=== PATIENT | male | born 2005 | race Two or more races ===

== ENCOUNTER 2023-03-24 20:56 | Inpatient (IN) | payer OTHER, BC ==
[2023-03-24] MEDS ORDERED: Metoclopramide 10 MG/2 ML SDV IVPUSH ONE (21:14)
[2023-03-24] MEDS ORDERED: Sodium Chloride 0.9% 1,000 ML IV SCH (21:15)
[2023-03-24] MEDS ORDERED: LORazepam 2 MG/ML SDV IVPUSH ONE (21:15)
[2023-03-24] MEDS ORDERED: HYDROmorphone 1 MG/ML Syringe IVPUSH ONE (21:15)
[2023-03-24 21:18] LABS: BASOPHILS ABSOLUTE AUTO 0.1 K/mm3 (0.0-0.3); BASOPHILS PERCENT AUTO 1.1 % (0.0-1.0); EOSINOPHILS ABSOLUTE AUTO 0.2 K/mm3 (0.0-0.7); HEMOGLOBIN 16.3 gm/dl (14.0-18.0); IMMATURE GRAN ABSOLUTE AUTO 0.08 K/mm3 (0.00-0.05); IMMATURE GRAN PERCENT AUTO 0.9 % (0.0-0.4); LYMPHOCYTES ABSOLUTE AUTO 2.7 K/mm3 (2.0-8.8); LYMPHOCYTES PERCENT AUTO 30.7 % (50.0-65.0); MEAN CORPUSCULAR HEMOGLOBIN 30.5 pg (28.0-32.0); MEAN CORPUSCULAR VOLUME 89.7 fl (83.0-99.0); MEAN PLATELET VOLUME 8.6 fl (9.4-12.4); MONOCYTES ABSOLUTE AUTO 0.7 K/mm3 (0.1-1.4); MONOCYTES PERCENT AUTO 7.4 % (2.0-10.0); NEUTROPHILS ABSOLUTE AUTO 5.2 K/mm3 (1.5-8.5); NEUTROPHILS PERCENT AUTO 57.9 % (35.0-45.0); PLATELET COUNT,PLT 318 K/mm3 (150-400); RED BLOOD CELL COUNT 5.35 M/mm3 (4.52-5.90); WHITE BLOOD CELL COUNT,WBC 8.92 K/mm3 (4.5-13.5)
[2023-03-24 21:26] LABS: PROTHROMBIN TIME 9.9 SECONDS (9.7-12.0)
[2023-03-24 21:27] LABS: PTT,PARTIAL THROMBOPLSTIN TIME 22.6 SECONDS (21.7-31.4)
[2023-03-24 21:29] LABS: ALANINE AMINOTRANSFERASE,ALT 489 U/L (16-63); ALBUMIN 4.1 g/dl (3.4-5.0); ALKALINE PHOSPHATASE 81 U/L (46-116); ASPARTATE AMNIOTRANSFERASE,AST 511 U/L (15-37); BILIRUBIN TOTAL 0.3 mg/dL (0.2-1.0); BLOOD UREA NITROGEN,BUN 9 mg/dL (7-18); BUN/CREATININE RATIO 7.5 (14-18); CALCIUM 8.7 mg/dL (8.5-10.1); CARBON DIOXIDE,CO2 22 mEq/L (21-32); CHLORIDE,CL 107 mEq/L (98-107); CREATININE 1.2 mg/dL (0.7-1.3); ESTIMATED GFR 89 mL/min (>60); ETHANOL BLOOD MEDICAL 0.24 gm% (0.00); GLUCOSE RANDOM 146 mg/dL (70-99); MAGNESIUM 2.4 mg/dL (1.8-2.4); PROTEIN TOTAL,TP 8.1 g/dl (6.4-8.2); SODIUM,NA 144 mEq/L (136-145)
[2023-03-24 21:43] LABS: INR < 0.93
[2023-03-24] MEDS ORDERED: Sodium Chloride 0.9% 10 ML Syringe FLUSH ONE (22:03)
[2023-03-24] MEDS ORDERED: Iopamidol 755 Mg/ML 100 ML Bottle IVPUSH ONE (22:03)
[2023-03-24 22:17] LABS: APPEARANCE,URINE CLEAR (Clear); BILIRUBIN,URINE NEGATIVE (Negative); COLOR,URINE LIGHT YELLOW (Yellow); GLUCOSE,URINE NEGATIVE (Negative); KETONES,URINE NEGATIVE (Negative); LEUKOCYTE ESTERASE,URINE NEGATIVE (Negative); NITRITE,URINE NEGATIVE (Negative); OCCULT BLOOD,URINE 2+ (Negative); PROTEIN,URINE 2+ (Negative); UROBILINOGEN,URINE 0.2 (0.2-1.0)
[2023-03-24 22:40] LABS: BACTERIA,URINE FEW /hpf (FEW); MUCUS,URINE NOT SEEN /hpf (FEW); RBC,URINE 20-30 /hpf (0-5); SQUAMOUS EPITHELIAL CELLS,UR 0-5 /hpf (0-5); WBC,URINE 0-5 /hpf (0-5); YEAST BUDDING,URINE FEW (NOT SEEN)
[2023-03-25] MEDS ORDERED: Propofol 200 MG/20 ML SDV IVPUSH ONE ×2 (00:14→01:54)
[2023-03-25] MEDS ORDERED: Propofol 200 MG/20 ML SDV ONE ×2 (00:14→01:52)
[2023-03-25] MEDS ORDERED: Lidocaine 1% 10 ML MDV ONE (01:50)
[2023-03-25] MEDS ORDERED: Lidocaine 1% 10 ML MDV INJECT ONE (01:54)
[2023-03-25] MEDS ORDERED: ceFAZolin 1 GM Vial ONE (02:03)
[2023-03-25] MEDS ORDERED: ceFAZolin 1 GM in Sodium Chloride 0.9% 50 ML IV ONE (02:05)
[2023-03-25] MEDS ORDERED: LORazepam 2 MG/ML SDV IVPUSH ONE (03:13)
[2023-03-25] MEDS ORDERED: HYDROmorphone 1 MG/ML Syringe IVPUSH ONE (03:13)
[2023-03-25] MEDS ORDERED: Diphtheria,Pertussis(Acell),Tetanus Vaccine 0.5 ML Syringe IM ONE (03:44)
[2023-03-25] MEDS ORDERED: Dextrose 5%-Lactated Ringers 1,000 ML IV SCH (04:30)
[2023-03-25] MEDS: Potassium Chloride 10 MEQ in Premix Bag 1 BAG IV SCH ×3 (05:10→06:57)
[2023-03-25] MEDS ORDERED: Naloxone 0.4 MG/ML SDV IVPUSH PRN (05:12)
[2023-03-25] MEDS ORDERED: Ondansetron 4 MG/2 ML SDV IVPUSH PRN (05:14)
[2023-03-25 05:28] LABS: BASOPHILS PERCENT AUTO 0.2 % (0.0-1.0); HEMATOCRIT 44.6 % (42.0-52.0); HEMOGLOBIN 15.1 gm/dl (14.0-18.0); IMMATURE GRAN ABSOLUTE AUTO 0.04 K/mm3 (0.00-0.05); IMMATURE GRAN PERCENT AUTO 0.3 % (0.0-0.4); LYMPHOCYTES ABSOLUTE AUTO 0.8 K/mm3 (1.0-4.8); LYMPHOCYTES PERCENT AUTO 6.1 % (24.0-44.0); MEAN CORPUSCULAR HEMOGLOBIN 30.3 pg (28.0-32.0); MEAN CORPUSCULAR HGB CONC 33.9 g/dl (32.0-36.0); MEAN CORPUSCULAR VOLUME 89.4 fl (83.0-99.0); MEAN PLATELET VOLUME 8.6 fl (9.4-12.4); MONOCYTES ABSOLUTE AUTO 1.4 K/mm3 (0.0-0.8); NEUTROPHILS ABSOLUTE AUTO 10.5 K/mm3 (1.8-7.7); NEUTROPHILS PERCENT AUTO 82.4 % (41.0-71.0); PLATELET COUNT,PLT 266 K/mm3 (150-400); RED BLOOD CELL COUNT 4.99 M/mm3 (4.52-5.90); WHITE BLOOD CELL COUNT,WBC 12.69 K/mm3 (3.9-11.3)
[2023-03-25 05:51] LABS: ALBUMIN 3.8 g/dl (3.4-5.0); ANION GAP 15.3 (5-15); BILIRUBIN TOTAL 0.2 mg/dL (0.2-1.0); CALCIUM 8.1 mg/dL (8.5-10.1); EST CRCL DRUG DOSING (CG) 110.17 mL/min; POTASSIUM,K 4.3 mEq/L (3.5-5.1); PROTEIN TOTAL,TP 7.6 g/dl (6.4-8.2)
[2023-03-25] MEDS: HYDROmorphone 0.5 MG/0.5 ML Syringe IVPUSH PRN ×8 (06:30→22:32)
[2023-03-25] MEDS: Lactated Ringers 1,000 ML IV SCH ×2 (07:57→15:55)
[2023-03-25] MEDS: Famotidine 20 MG/2 ML SDV IVPUSH SCH (08:06)
[2023-03-25 12:11] LABS: HEMATOCRIT 46.3 % (42.0-52.0); HEMOGLOBIN 15.7 gm/dl (14.0-18.0); MEAN CORPUSCULAR HEMOGLOBIN 30.5 pg (28.0-32.0); MEAN CORPUSCULAR HGB CONC 33.9 g/dl (32.0-36.0); MEAN CORPUSCULAR VOLUME 89.9 fl (83.0-99.0); MEAN PLATELET VOLUME 8.2 fl (9.4-12.4); PLATELET COUNT,PLT 231 K/mm3 (150-400); RED BLOOD CELL COUNT 5.15 M/mm3 (4.52-5.90); WHITE BLOOD CELL COUNT,WBC 11.45 K/mm3 (3.9-11.3)
[2023-03-26] MEDS: Lactated Ringers 1,000 ML IV SCH (00:10)
[2023-03-26] MEDS: HYDROmorphone 0.5 MG/0.5 ML Syringe IVPUSH PRN ×7 (00:26→11:55)
[2023-03-26] MEDS: Famotidine 20 MG/2 ML SDV IVPUSH SCH (09:13)
[2023-03-26] MEDS: Acetaminophen/HYDROcodone 325-5 MG Tab PO PRN ×3 (13:25→22:47)
[2023-03-26] MEDS: Docusate Sodium 100 MG Cap PO SCH ×2 (16:21→22:20)
[2023-03-27] MEDS: Acetaminophen/HYDROcodone 325-5 MG Tab PO PRN ×4 (02:06→18:55)
[2023-03-27] MEDS: Docusate Sodium 100 MG Cap PO SCH ×2 (08:19→15:38)
[2023-03-27] MEDS: Famotidine 20 MG/2 ML SDV IVPUSH SCH (08:19)
[2023-03-27] MEDS ORDERED: Polyethylene Glycol 3350 Powder 17 GM Packet PO ONE (12:30)
== END 2023-03-27 19:40 | disposition home or self-care (01) | DRG 537 ==
LOC: JD.ED 20:56 → JD.ICU 03-25 03:31
PROVIDERS: ADMIT Specialist; ATTEND Specialist
PROC: 0HQ3XZZ Repair Left Ear Skin, External Approach (ICD-10-PCS; principal; 2023-03-25)
PROC: 0QS4XZZ Reposition Right Acetabulum, External Approach (ICD-10-PCS; 2023-03-25)
DX: S73.014A Posterior dislocation of right hip, initial encounter (principal); S02.40FA Zygomatic fracture, left side, initial encounter for closed fracture; S36.113A Laceration of liver, unspecified degree, initial encounter; J32.2 Chronic ethmoidal sinusitis; S01.312A Laceration without foreign body of left ear, initial encounter; V89.2XXA Person injured in unspecified motor-vehicle accident, traffic, initial encounter
CPT/HCPCS: 12013; 27250; 36415; 51702; 70450; 70450-26; 70486; 70486-26; 71260; 71260-26; 72125; 72125-26; 72128; 72128-26; 72131; 72131-26; 72170; 72170-26; 73552-26-RT; 73552-RT; 74177; 74177-26; 80053; 80307; 81001; 82010; 83735; 85025; 85027; 85610; 85730; 86850; 86900; 86901; 90715; 97161-GP; 99285; A9270-GY; J0690; J1170; J2060; J2405; J2704; J2765; J3480; J3490; J7030; J7120; J7121; Q9967

== ENCOUNTER 2023-08-08 17:21 | Emergency (ER) | payer BC ==
[2023-08-08] MEDS ORDERED: Proparacaine 0.5% Ophth Soln 15 ML Bottle EYELF ONE (17:44)
[2023-08-08] MEDS ORDERED: Fluorescein 1 MG Ophth Strip EYELF ONE (17:44)
[2023-08-08] MEDS ORDERED: Sodium Chloride 0.9% 10 ML Syringe FLUSH ONE (18:07)
[2023-08-08] MEDS: Dexamethasone/Tobramycin 0.1-0.3% Ophth Susp 5 ML Bottle EYELF SCH (18:41)
== END 2023-08-08 18:45 | disposition home or self-care (01) ==
LOC: JD.ED 17:21
DX: S05.02XA Injury of conjunctiva and corneal abrasion without foreign body, left eye, initial encounter (principal); F17.210 Nicotine dependence, cigarettes, uncomplicated; Z79.899 Other long term (current) drug therapy; Z91.012 Allergy to eggs; Z91.018 Allergy to other foods; Z91.013 Allergy to seafood; X58.XXXA Exposure to other specified factors, initial encounter; Y93.89 Activity, other specified; Y99.0 Civilian activity done for income or pay
CPT/HCPCS: 99283; A9270; 99282; J3490